=== PATIENT | female | born 1955 | race Caucasian/White ===

== ENCOUNTER 2017-05-04 19:12 | Emergency (ER) | payer MEDICAID ==
[~2017-05-04] VITALS: Ht 160 cm; Wt 53.0 kg
[2017-05-04] MEDS ORDERED: ASPIRIN 81 MG TABLET CHEW PO ONE (19:30)
[2017-05-04] MEDS ORDERED: SODIUM CHLORIDE FLUSH 10ML SYR IVF ONE (19:30)
[2017-05-04] MEDS ORDERED: ASPIRIN 81 MG TABLET CHEW ONE (19:38)
[2017-05-04 19:59] LABS: HEMATOCRIT 41.1 % (34.6-47.8); HEMOGLOBIN 13.9 g/dL (11.7-16.4); WHITE BLOOD COUNT 7.6 x10^3/uL (3.4-10)
[2017-05-04 20:12] LABS: BLOOD UREA NITROGEN 12 mg/dL (7-18)
[2017-05-04 20:20] LABS: IS PT STATUS REG ER OR PRE ER? YES
[2017-05-04 20:40] VITALS: BP 138/74
== END 2017-05-04 22:19 | disposition home or self-care (01) ==
LOC: ED 22:14
DX: R00.2 Palpitations (principal)
CPT/HCPCS: 36415; 71010; 80048; 82040; 84484; 85025; 93005; 99285